=== PATIENT | male | born 1950 | race Caucasian/White ===

== ENCOUNTER 2018-01-18 10:09 | Emergency (ER) ==
[2018-01-18 10:31] VITALS: BP 137/56; TEMP 97.6; BMI 19.5
--- NOTE | 2018-01-18 10:39 | ED.PDOC ---
General Stated Complaint: sent from the detention for abd complaints and diarrhea Time Seen by Physician: 10:30 Mode of Arrival: Ambulance Information Source: Patient Exam Limitations: Dementia Nursing and Triage Documentation Reviewed and Agree: Yes Reviewed sepsis parameters & appropriate labs ordered?: Yes System Inflammatory Response Syndrome: Not Applicable <HITESHKELECHIAYDE Filed: 01/18/18 10:54> <RUYAYDE Filed: 01/18/18 14:55> ED Provider: Dr. AYDE REDMOND MD Chief Complaint: Non-specific Complaint Primary Care Provider: SADA SOLITARIO Sepsis Protocol: For patient's 13 years and over: Temp is 96.8 and below OR 101 and greater Pulse >90 BPM Resp >20/minute Acutely Altered Mental Status Are patient's symptoms suggestive of a new infection, such as: -Pneumonia -Skin, Soft Tissue -Endocarditis -UTI -Bone, Joint Infection -Implantable Device -Acute Abdominal Infection -Wound Infection -Meningitis -Blood Stream Catheter Infection -Unknown GI Complaint Exam - Abdominal Pain Complaint/Exam Onset: Sudden Duration: unknown Symptoms Are: Still present Timing: Intermittent Initial Severity: Mild Current Severity: Mild Location of Pain: Diffuse Character: Reports: Dull, Aching Alleviating: Reports: None Associated Signs and Symptoms: Reports: Chest pain, Decreased appetite, Nausea, Diarrhea Abdominal Findings: Present: None Differential Diagnoses: Bowel Obstruction, Constipation Quality Indicator For Non-Traumatic Chest Pain/Syncope: EKG Performed <STONE Filed: 01/18/18 10:54> Review of Systems - Review Of Systems Constitutional: Reports: No symptoms Eyes: Reports: No symptoms Ears, Nose, Mouth, Throat: Reports: No symptoms Respiratory: Reports: No symptoms Cardiac: Reports: No symptoms GI: Reports: Abdominal pain, Diarrhea, Nausea, Poor appetite : Reports: No symptoms Musculoskeletal: Reports: No symptoms Skin: Reports: No symptoms Neurological: Reports: No symptoms Endocrine: Reports: No symptoms Hematologic/Lymphatic: Reports: No symptoms All Other Systems: Reviewed and Negative <HITESHKELECHIAYDE Filed: 01/18/18 10:54> Past Medical History - Past Medical History Previously Healthy: No Endocrine: Reports: Unknown Cardiovascular: Reports: Unknown Respiratory: Reports: Unknown Hematological: Reports: Unknown Gastrointestinal: Reports: Unknown Genitourinary: Reports: Unknown Neuro/Psych: Reports: Unknown Musculoskeletal: Reports: Unknown Cancer: Reports: Unknown - Surgical History General Surgical History: Reports: Unknown - Family History Family History: Reports: Unknown - Social History Smoking Status: Former smoker Hx Substance Use: No Alcohol Screening: None <AYDE RITTER Last Filed: 01/18/18 10:54> Physical Exam - Physical Exam Appearance: Well-appearing, No pain distress, Well-nourished Pain Distress: Mild Eyes: ALEJANDRA, EOMI, Conjunctiva clear ENT: Ears normal Neck: Supple Respiratory: Airway patent, Breath sounds clear, Breath sounds equal, Respirations nonlabored Cardiovascular: RRR, Pulses normal, No rub, No murmur GI/: Soft, Nontender, No masses, Bowel sounds normal, No Organomegaly Musculoskeletal: Normal strength, ROM intact, No edema, No calf tenderness Skin: Warm, Dry, Normal color Neurological: Sensation intact, Motor intact, Reflexes intact, Cranial nerves intact, Alert, Oriented Psychiatric: Affect appropriate, Mood appropriate <AYDE RITTER Last Filed: 01/18/18 10:54> - Physical Exam Appearance: Well-appearing, No pain distress, Well-nourished <AYDE REDMOND - Last Filed: 01/18/18 14:55> Interpretation - Radiology Interpretation Exam Interpreted: CT Scan Xray Comments: possible cholecystitis, old clavicle Fx healing, old sternal body Fx healin Radiology Interpretation By: Radiologist - EKG Interpretation Rate: Normal (one PAC) <AYDE REDMOND Last Filed: 01/18/18 14:55> Re-Evaluation - Re-Evaluation Time of Re-Evaluation: 11:25 Status: Unchanged Vital Signs Stable: Yes Appearance: NAD Lungs: Clear Skin: Warm and Dry Neuro: Other (dementia, unable to answer questions coherantly) <AYDE REDMOND - Last Filed: 01/18/18 14:55> Physician Notification - Case Discussed Physician Notified: dr redmond Time of Notification: 11:00 <OMAR-ER,AYDE - Last Filed: 01/18/18 10:54> Critical Care Note - Critical Care Note Total Time (mins): 0 <AYDE REDMOND - Last Filed: 01/18/18 14:55> Course - Course Hematology/Chemistry: 01/18/18 11:00 01/18/18 11:14 <AYDE REDMOND - Last Filed: 01/18/18 14:55> - Course Orders, Labs, Meds: Lab Review 01/18/18 01/18/18 01/18/18 10:30 10:35 11:00 WBC 18.42 H RBC 3.18 L Hgb 10.8 L Hct 32.6 L MCV 102.5 H MCH 34.0 H MCHC 33.1 RDW Coeff of Ashly 19.7 H Plt Count 86 L Immature Gran % (Auto) 1.1 Neut % (Auto) 87.8 Lymph % (Auto) 0.8 L Castro % (Auto) 10.0 Eos % (Auto) 0.1 Baso % (Auto) 0.2 Immature Gran # (Auto) 0.2 Neut # (Auto) 16.2 H Lymph # (Auto) 0.2 L Castro # (Auto) 1.8 Eos # (Auto) 0.0 Baso # (Auto) 0.0 ESR 53 H Puncture Site Rr O2 Saturation 96.0 ABG pH 7.486 H ABG pCO2 34.6 L ABG pO2 74.0 L ABG HCO3 26.1 H ABG Total CO2 27 ABG Base Excess 3 H Eliseo Test + FiO2 % 21.0 Sodium Potassium Chloride Carbon Dioxide Anion Gap BUN Creatinine Estimated GFR (MDRD) BUN/Creatinine Ratio Glucose Calcium Total Bilirubin AST ALT Alkaline Phosphatase Total Creatine Kinase Troponin I Total Protein Albumin Globulin Albumin/Globulin Ratio Amylase Lipase Urine Color Yellow Urine Clarity Cloudy Urine pH 6.5 Ur Specific Portal 1.025 Urine Protein 1+ Urine Glucose (UA) Negative Urine Ketones Negative Urine Blood Trace-intact Urine Nitrite Positive Urine Bilirubin Negative Urine Urobilinogen 0.2 Ur Leukocyte Esterase 1+ Urine Microscopic RBC 0-2 Urine Microscopic WBC 20-30 Ur Squamous Epith Cells 0-2 Urine Bacteria 4+ 01/18/18 01/18/18 11:00 11:14 WBC RBC Hgb Hct MCV MCH MCHC RDW Coeff of Ashly Plt Count Immature Gran % (Auto) Neut % (Auto) Lymph % (Auto) Castro % (Auto) Eos % (Auto) Baso % (Auto) Immature Gran # (Auto) Neut # (Auto) Lymph # (Auto) Castro # (Auto) Eos # (Auto) Baso # (Auto) ESR Puncture Site O2 Saturation ABG pH ABG pCO2 ABG pO2 ABG HCO3 ABG Total CO2 ABG Base Excess Eliseo Test FiO2 % Sodium 137 Potassium 4.3 Chloride 100 Carbon Dioxide 27 Anion Gap 14.3 BUN 19 H Creatinine 0.71 Estimated GFR (MDRD) 110.00 BUN/Creatinine Ratio 26.76 Glucose 109 Calcium 9.6 Total Bilirubin 2.3 H AST 33 ALT 34 Alkaline Phosphatase 141 H Total Creatine Kinase 27 Troponin I < 0.0100 Total Protein 6.9 Albumin 3.1 L Globulin 3.8 Albumin/Globulin Ratio 0.82 Amylase 48 Lipase 8 Urine Color Urine Clarity Urine pH Ur Specific Portal Urine Protein Urine Glucose (UA) Urine Ketones Urine Blood Urine Nitrite Urine Bilirubin Urine Urobilinogen Ur Leukocyte Esterase Urine Microscopic RBC Urine Microscopic WBC Ur Squamous Epith Cells Urine Bacteria Orders Category Date Time Status ABG DRAW REQUEST Stat CARDIO 01/18/18 10:35 Completed EKG-(ED ONLY) Stat CARDIO 01/18/18 10:35 Completed ABG Stat LAB 01/18/18 10:35 Completed AMYLASE Stat LAB 01/18/18 11:14 Completed BLOOD CULTURE (ED ONLY) Stat LAB 01/18/18 Ordered CBC W/ AUTO DIFF Stat LAB 01/18/18 11:00 Completed COMPREHENSIVE METABOLIC PANEL Stat LAB 01/18/18 11:14 Completed CREATINE KINASE Stat LAB 01/18/18 11:00 Completed ESR Stat LAB 01/18/18 11:00 Completed LIPASE Stat LAB 01/18/18 11:14 Completed TROPONIN I Stat LAB 01/18/18 11:00 Completed URINALYSIS C & S IF INDICATED Stat LAB 01/18/18 10:30 Completed URINE CULTURE Stat LAB 01/18/18 10:30 Received Ceftriaxone Sodium [Rocephin] 2 gm MEDS 01/18/18 14:45 Active 0.9 % Sodium Chloride [Sodium Chloride] [address] ABDOMEN/PELVIS WO CONTRAST Stat RADS 01/18/18 10:[address] CHEST W/O CONTRAST Stat RADS 01/18/18 10:36 Completed Medications Generic Name Dose Route Start Last Admin Trade Name Freq PRN Reason Stop Dose Admin Ceftriaxone Sodium 2 gm/ 50 mls @ 50 mls/hr 01/18/18 14:45 Sodium Chloride IV 01/18/18 15:44 ONCE STA Vital Signs: Temp Pulse Resp BP Pulse Ox 01/18/18 10:15 97.6 F 64 20 137/56 L 98 Departure <AYDE RITTER - Last Filed: 01/18/18 10:54> - Departure Time of Disposition: 14:45 Pt referred to PMD for follow-up: No (transfered to another hopital) IPMP verified?: No <AYDE REDMOND - Last Filed: 01/18/18 14:55> - Departure Disposition: TRANSFER SNF Discharge Problem: Cholecystitis Condition: Good Allergies/Adverse Reactions: Allergies No Known Allergies Allergy (Unverified 01/18/18 10:35) Home Medications: Ambulatory Orders Acetaminophen [Tylenol] 650 mg PO Q6H PRN 01/18/18 Albuterol Sulfate 0.042% Neb [Albuterol 0.042% Neb] 1 vial NEB RTQ6H 01/18/18 Carbidopa/Levodopa [Carbidopa-Levodopa 25-100 Tab] 1 each PO TID 01/18/18 Cholecalciferol (Vitamin D3) [Vitamin D] 1,000 units PO DAILY 01/18/18 Cyanocobalamin (Vitamin B-12) [Vitamin B12] 1,000 mcg PO EVERY OTHER DAY Folic Acid 1 mg PO DAILY 01/18/18 Melatonin 3 mg PO BEDTIME 01/18/18 Nystatin [Nystatin Cream] 1 applic TP Q8HR PRN 01/18/18 Pantoprazole Sodium [Protonix] 40 mg PO DAILY 01/18/18 Polyethylene Glycol 1450 [Pcca Polyglycol Korey Base] 17 gm PO DAILY 01/18/18 Saliva Substitution Combo No.8 [Biotene Dry Mouth] 4 drop DENTAL QID 01/18/18 Sodium Chloride [Saline Nasal [place]] 2 sprays NS Q8HR PRN 01/18/18 Tamsulosin HCl [Flomax] 0.4 mg PO BEDTIME 01/18/18 Tiotropium Gallant [Spiriva] 1 cap IH DAILY 01/18/18
--- NOTE | 2018-01-18 11:17 | CT ---
EXAM: CT chest without contrast. HISTORY: Cough. COMPARISON: None available. TECHNIQUE: Multiple axial images of the chest were obtained without intravenous contrast. Images we re reformatted in the sagittal and coronal planes. FINDINGS: Comminuted displaced proximal left clavicular fracture noted with some non bridging callus formation present. Numerous bilateral rib fractures seen with callus formation. There is a mildly displaced lower sternal body fracture with some callus formation present. Transverse sclerosis seen in the inferior aspect of the right scapular body with faint visualization of the fracture line. Mil d compression deformities of T5 and T6 noted with severe compression deformity of L1. Evaluation for lymphadenopathy is limited by lack of intravenous contrast but heart is at the upper l imits of normal in size. Atherosclerotic calcifications present. No large pericardial effusion iden tified. A trace bilateral pleural effusions are present. No consolidation, pleural effusion or pneumothorax identified. Limited images of the upper abdomen will be reported separately. Gallbladder wall thickening, perich olecystic fluid is all periportal edema noted. Refer to abdominal CT report for details. IMPRESSION: 1. Trace bilateral pleural effusions. No acute pulmonary process. 2. Healing proximal left clavicular fracture and sternal body fracture. Age indeterminate thoracolu mbar compression deformities, inferior right scapular fracture and bilateral rib fractures. 3. Findings suspicious for cholecystitis.
--- NOTE | 2018-01-18 11:31 | CT ---
EXAM: CT abdomen pelvis without contrast HISTORY: Abdominal pain COMPARISON: None TECHNIQUE: CT abdomen pelvis performed without intravenous contrast. Coronal and sagittal reformatt ed images obtained. FINDINGS: Please refer to separate report CT chest regarding findings in the lower chest, noting daniel ateral small pleural effusions. No free air. Several bilateral rib fractures with healing changes, likely remote. There is a severe compression fracture of L1, age indeterminate. There is a mixed ly tic and sclerotic lesion in the left iliac bone, measuring 1.7 cm image 86, indeterminate. Evaluatio n organ parenchyma limited without contrast. Liver appears normal. Gallbladder is distended with in creased attenuation may represent gallstones and/or sludge. There is gallbladder wall thickening and /or pericholecystic fluid. Findings are consistent with cholecystitis. Pancreas grossly unremarkabl e. Spleen grossly unremarkable. Adrenals grossly unremarkable. Punctate right renal calculus ty uring approximately 1 mm. No hydronephrosis. Aorta normal in caliber. Moderate atherosclerosis. M ild bladder wall thickening and trabeculation with a bladder diverticulum noted. Tiny airin the bladd er lumen. There is a 2 cm calculus in the dependent bladder lumen. Prostate is enlarged, indenting t he bladder base. No lymphadenopathy identified. Stomach appears normal. No dilated loops small bow el. Appendix appears normal. Moderate fecal retention in the right colon. Body wall edema. Trace free fluid in the pelvis. Nonspecific mesenteric edema. Evaluation limited without contrast. 2.6 x 5.6 x 5.8 cm fluid collection in the right psoas muscle is suspicious for an abscess. IVC filter. IMPRESSION: 1. Findings consistent with acute cholecystitis. 2. 2.6 x 5.6 x 5.8 cm fluid collection in the right psoas muscle is suspicious for an abscess. Diffe rential diagnosis includes an old hematoma. 3. Mild bladder wall thickening and trabeculation and bladder diverticula may relate to changes of ch ronic outlet obstruction and/or cystitis. Prostate is enlarged, indenting the bladder base. 2 cm evangelina dder calculus present. Tiny air in the bladder lumen, likely relates to recent instrumentation and be correlated clinically for infection. 4. Nonspecific mesenteric edema. Trace free fluid in the pelvis. Body wall edema. 5. Severe compression fracture L1, age indeterminate. 6. Right nephrolithiasis. No hydronephrosis. 7. Moderate fecal retention right colon. 8. Mixed lytic and sclerotic lesion in the left iliac bone, measuring 1.7 cm, indeterminate. Recomme nd correlation with bone scan. 9. Evaluation limited without contrast. Findings #1 and #2 called to emergency department physician 11:15 a.m. 01/18/2018
[2018-01-18] MEDS: ROCEPHIN 2 GM in SODIUM CHLORIDE 50 ML IV STA (15:35)
[2018-01-18] MEDS: ROCEPHIN ONE (15:35)
== END 2018-01-18 17:00 | disposition short-term general hospital (02) ==
LOC: ED 10:09
DX: K81.9 Cholecystitis, unspecified (principal); R07.9 Chest pain, unspecified; F03.90 Unspecified dementia, unspecified severity, without behavioral disturbance, psychotic disturbance, mood disturbance, and anxiety; Z79.899 Other long term (current) drug therapy; K59.00 Constipation, unspecified; Z91.14 Patient's other noncompliance with medication regimen; M54.5 Low back pain; R11.10 Vomiting, unspecified; R68.89 Other general symptoms and signs; R10.84 Generalized abdominal pain
CPT/HCPCS: 36415; 80053; 81001; 82150; 82550; 82803; 83690; 84484; 85025; 85651; 87040; 87086; 87186; 93005; 93010; 96365; 99285

== ENCOUNTER 2018-02-14 09:10 | Outpatient (CLI) | payer OTHER | END 2018-02-14 09:11 | disposition home or self-care (01) | LOC: NONPT 09:10 | PROVIDERS: ATTEND Emergency Medicine | DX: Z51.81 Encounter for therapeutic drug level monitoring (principal); Z79.899 Other long term (current) drug therapy; R63.4 Abnormal weight loss; D64.9 Anemia, unspecified | CPT/HCPCS: 80053; 84443; 85025 ==

== ENCOUNTER 2018-03-15 09:07 | Outpatient (CLI) ==
--- NOTE | 2018-03-15 10:06 | DI ---
EXAM: Three views of the cervical spine. History: Cervical neck pain. Findings: No acute fracture. Minimal 2 mm anterolisthesis of C4 on C5. No prevertebral soft tissue swelling. Predental space is not widened. Moderate multilevel degenerative disc space narrowing wi th endplate sclerosis and prominent anterior osteophytes. Atherosclerotic vascular calcifications. Impression: 1. No acute osseous abnormality of the cervical spine. 2. Moderate degenerative disc disease.
--- NOTE | 2018-03-15 10:13 | DI ---
EXAM: Three views of the left shoulder. History: Left shoulder pain. Findings: Osteopenia. No acute fracture or dislocation. Mild narrowing of the left AC joint and le ft glenohumeral joint. No abnormal calcifications or radiopaque foreign bodies. Impression: 1. No acute osseous abnormality. 2. Mild arthritis. 3. Osteopenia
--- NOTE | 2018-03-15 10:18 | DI ---
EXAM: Three views of the right shoulder. History: Right shoulder pain. Findings: Osteopenia. No acute fracture or dislocation. Mild narrowing of the right AC joint and r ight glenohumeral joint. No abnormal calcifications or radiopaque foreign bodies. Impression: 1. No acute osseous abnormality. 2. Mild arthritis. 3. Osteopenia
--- NOTE | 2018-03-15 10:23 | DI ---
EXAM: Three views of the lumbar spine. History: Lower back pain. Comparison: CT abdomen pelvis 01/18/2018 Findings: IVC filter. Osteopenia. Atherosclerotic vascular calcifications. Stable severe chronic c ompression deformity at L1. No new acute fractures identified within the lumbar spine. Mild multile martha degenerative disc space narrowing. Scattered colonic stool. Impression: Stable severe chronic compression deformity at L1. No new acute fractures identified.
== END 2018-03-15 09:08 | disposition home or self-care (01) ==
LOC: RAD 09:07
PROVIDERS: ATTEND Emergency Medicine
DX: M54.2 Cervicalgia (principal); G89.29 Other chronic pain; M54.5 Low back pain; M25.512 Pain in left shoulder; M25.511 Pain in right shoulder

== ENCOUNTER 2018-06-01 06:17 | Outpatient (CLI) | END 2018-06-01 06:18 | disposition home or self-care (01) | LOC: LAB 06:17 | PROVIDERS: ATTEND General Practice | DX: D69.6 Thrombocytopenia, unspecified (principal) | CPT/HCPCS: 36415; 85025 ==

== ENCOUNTER 2018-06-19 15:52 | Outpatient (CLI) | END 2018-06-19 15:53 | disposition home or self-care (01) | LOC: RHC-LAB 15:52 | PROVIDERS: ATTEND General Practice | DX: D69.6 Thrombocytopenia, unspecified (principal) | CPT/HCPCS: 82272 ==